=== PATIENT | female | born 1950 | race Two or more races ===

== ENCOUNTER 2020-06-23 06:11 | Inpatient (IN) | payer OTHER ==
[2020-06-22 19:24] VITALS: BMI 27.2
[2020-06-23] MEDS ORDERED: fentaNYL CITRATE 250 MCG/5 ML VIAL ONE (13:04)
[2020-06-23] MEDS ORDERED: PROPOFOL 20 ML ONE ×2 (13:05)
[2020-06-23] MEDS ORDERED: MIDAZOLAM HCL 2 MG/2 ML SINGLE DOSE VIAL ONE ×2 (13:05→13:42)
[2020-06-23] MEDS ORDERED: SUCCINYLCHOLINE CHLORIDE 200 MG/10 ML SYRINGE ONE (13:07)
[2020-06-23] MEDS ORDERED: ROCURONIUM BROMIDE 50 MG/5 ML SYRINGE ONE (13:07)
[2020-06-23] MEDS ORDERED: DEXAMETHASONE SOD PHOSPHATE 4 MG/1 ML VIAL ONE (13:08)
[2020-06-23] MEDS ORDERED: ISOSULFAN BLUE 50 MG/5 ML VIAL SQ ONE (13:11)
[2020-06-23] MEDS ORDERED: METHYLENE BLUE 50 MG/10 ML AMPUL ONE (13:11)
[2020-06-23] MEDS ORDERED: HYDROmorphone HCl 2 MG/ML VIAL IVPUSH PRN ×2 (13:14→13:16)
[2020-06-23] MEDS ORDERED: ONDANSETRON 4 MG/2 ML VIAL IVPUSH PRN (13:14)
[2020-06-23] MEDS ORDERED: oxyCODONE HCL 5 MG TABLET PO PRN ×2 (13:17)
[2020-06-23] MEDS ORDERED: ONDANSETRON 4 MG/2 ML VIAL IVPB PRN ×2 (13:19→16:01)
[2020-06-23] MEDS ORDERED: ACETAMINOPHEN 325 MG TABLET (FP) PO SCH (13:30)
[2020-06-23] MEDS ORDERED: ceFAZolin SODIUM 1 GM VIAL IVPB ONE (13:58)
[2020-06-23] MEDS ORDERED: ceFAZolin SODIUM 1 GM VIAL ONE ×2 (14:01→21:11)
[2020-06-23] MEDS ORDERED: SODIUM CHLORIDE 0.9% P/F 10 ML VIAL IJ ONE (14:01)
[2020-06-23] MEDS ORDERED: PHENYLEPHRINE HCL 10 MG/1 ML SINGLE DOSE VIAL ONE (14:39)
[2020-06-23] MEDS ORDERED: KETOROLAC TROMETHAMINE 30 MG/1 ML VIAL ONE (15:46)
[2020-06-23] MEDS ORDERED: ONDANSETRON 4 MG/2 ML VIAL ONE (15:46)
[2020-06-23] MEDS ORDERED: ACETAMINOPHEN 500 MG TABLET (FP) PO PRN (16:01)
[2020-06-23] MEDS ORDERED: ALPRAZolam 0.25 MG TABLET PO ONE (16:01)
[2020-06-23] MEDS ORDERED: HYDROmorphone *PCA* 10MG/50ML DISP.SYRIN PCA SCH ×3 (16:15→18:45)
[2020-06-23] MEDS ORDERED: HYDROmorphone *PCA* 10MG/50ML DISP.SYRIN ONE (19:24)
[2020-06-23] MEDS: LACTATED RINGERS SOLUTION 1,000 ML IV SCH ×2 (19:48→19:59)
[2020-06-23] MEDS ORDERED: DEXTROSE 5%-WATER - 50 ML IVPB ONE (21:11)
[2020-06-23] MEDS: CEFAZOLIN 1 GM in DEXTROSE 5%-WATER - 50 ML IVPB SCH (21:22)
[2020-06-23] MEDS: LACTATED RINGERS SOLUTION 1,000 ML/1,000 ML INFUS.BAG IV SCH (21:22)
[2020-06-23] MEDS: DOCUSATE SODIUM 100 MG CAPSULE (FP) PO SCH (21:23)
[2020-06-24] MEDS ORDERED: ceFAZolin SODIUM 1 GM VIAL ONE ×2 (05:28→14:35)
[2020-06-24] MEDS ORDERED: DEXTROSE 5%-WATER - 50 ML IVPB ONE ×2 (05:28→14:35)
[2020-06-24] MEDS: CEFAZOLIN 1 GM in DEXTROSE 5%-WATER - 50 ML IVPB SCH ×2 (05:32→14:37)
[2020-06-24] MEDS: LACTATED RINGERS SOLUTION 1,000 ML/1,000 ML INFUS.BAG IV SCH ×2 (05:48→17:56)
[2020-06-24] MEDS ORDERED: PT OWN MED DRAWER 7, Y5N ONE (10:07)
[2020-06-24] MEDS: DOCUSATE SODIUM 100 MG CAPSULE (FP) PO SCH ×3 (11:05→21:29)
[2020-06-24] MEDS: metFORMIN HCL 500 MG TABLET (FP) PO SCH (17:54)
[2020-06-25] MEDS: metFORMIN HCL 500 MG TABLET (FP) PO SCH (06:10)
[2020-06-25] MEDS: DOCUSATE SODIUM 100 MG CAPSULE (FP) PO SCH (10:31)
[2020-06-25 15:18] VITALS: BP 133/83; PULSE 102; TEMP 98.2
[2020-06-25] MEDS ORDERED: PCA PUMP NR ONE (15:39)
== END 2020-06-25 15:38 | disposition home or self-care (01) | DRG 580 ==
LOC: J2C 06:11 → EDSTATUS 13:00 → J6S 20:55
PROVIDERS: ADMIT Surgery; ATTEND Surgery
PROC: 0HTV0ZZ Resection of Bilateral Breast, Open Approach (ICD-10-PCS; principal; 2020-06-23 13:00)
PROC: 07B60ZX Excision of Left Axillary Lymphatic, Open Approach, Diagnostic (ICD-10-PCS; 2020-06-23 13:00)
DX: C50.912 Malignant neoplasm of unspecified site of left female breast (principal); C77.3 Secondary and unspecified malignant neoplasm of axilla and upper limb lymph nodes; E11.22 Type 2 diabetes mellitus with diabetic chronic kidney disease; I12.9 Hypertensive chronic kidney disease with stage 1 through stage 4 chronic kidney disease, or unspecified chronic kidney disease; N18.30 Chronic kidney disease, stage 3 unspecified; E11.51 Type 2 diabetes mellitus with diabetic peripheral angiopathy without gangrene; K21.9 Gastro-esophageal reflux disease without esophagitis; Z79.84 Long term (current) use of oral hypoglycemic drugs
CPT/HCPCS: 78195-TC; 82962; 88307-TC; 88341-TC; 93005; 93010; 94010; A9541; Q9968